=== PATIENT | female | born 1950 | race Caucasian/White ===

== ENCOUNTER 2017-10-06 20:09 | Emergency (ER) | payer OTHER ==
[~2017-10-06] VITALS: Ht 170.2 cm; Wt 76.2 kg
[2017-10-06 20:23] VITALS: Ht 170.2 cm; Wt 76.2 kg
[2017-10-06 21:54] VITALS: BP 161/84
== END 2017-10-06 21:54 | disposition home or self-care (01) ==
LOC: ED 20:09
DX: R42 Dizziness and giddiness (principal); I10 Essential (primary) hypertension